=== PATIENT | female | born 1955 ===

== ENCOUNTER 2022-09-30 04:43 | Day surgery (SDC) | payer OTHER ==
[~2022-09-30 04:43] MED LIST: CRESTOR10 MG PO; GLIPIZIDE ER10 MG PO; SYNTHROID75 MCG PO
== END 2022-09-30 11:50 | disposition home or self-care (01) ==
LOC: CIR.AMB 04:43
PROVIDERS: ATTEND Orthopaedic Surgery
DX: M75.121 Complete rotator cuff tear or rupture of right shoulder, not specified as traumatic (principal); M75.21 Bicipital tendinitis, right shoulder; M24.111 Other articular cartilage disorders, right shoulder; I10 Essential (primary) hypertension; Z20.822 Contact with and (suspected) exposure to COVID-19